=== PATIENT | male | born 1960 | race Caucasian/White ===

== ENCOUNTER 2021-02-23 08:47 | Outpatient (CLI) | payer MEDICARE, SELFPAY ==
--- NOTE | 2021-02-23 13:48 | WPDPFTINT ---
PFT Procedure Performed PFT Procedure Performed Spirometry with Pre/Post Bronchodilator Plethysmography (Lung Vol) Diffusing Cap (DLCO) Flow Vol Loop PFT Interpretation Lung volumes were measured with the body plethysmography method. Lung volumes are unremarkable. Spirometry showed diminished expiratory flow rates and a normal FEV1 to FVC ratio of 70%. The diminished expiratory flow rates in the face of a normal total lung capacity and a normal FEV1 to FVC ratio is indicative of a nonspecific pattern. Flow volume loop is consistent with suboptimal effort. Following administration of a bronchodilator there was no significant increase in the expiratory flow rates. The lung diffusion capacities is mildly reduced at 69%. Impression: Nonspecific pattern. Mildly reduced lung diffusion capacity.
== END 2021-02-23 08:48 | disposition home or self-care (01) ==
LOC: ANHPFT 09:00
PROVIDERS: PCP Family Medicine; Visit Provider Family Medicine
DX: R06.00 Dyspnea, unspecified (principal); R94.2 Abnormal results of pulmonary function studies
CPT/HCPCS: 94060; 94726; 94729